=== PATIENT | male | born 1975 | race Caucasian/White ===

== ENCOUNTER 2018-12-11 15:10 | Emergency (ER) | payer OTHER ==
[~2018-12-11] VITALS: Ht 185.4 cm; Wt 81.7 kg
[~2018-12-11 15:10] MED LIST: ACETAMINOPHEN-1 EAC1 PO; APAP500 PO; CLEOCIN HCL150 MG PO; CLEOCIN HCL300 MG PO; CORTISPORIN OTI10 ML OTIC; ERY-TAB500 MG PO; ERYTHROMYCIN500 MG PO; HYDROCODON-ACE1 EAC7 PO; KEFLEX500 MG PO; MEDROLDOSEPACK PO; NOHOMEMEDICATIONS; NORCO 5-325 TA1 EACH PO; ROBAXIN 750 MG750 M1 PO; TRAMADOL 50 MG50 MG PO; TYLENOL EX-STR500 M2 PO; TYLENOL325 MG PO; ULTRAM 50MG TAB50 MG PO; VICODIN 5-5001 EACH PO
[2018-12-11] MEDS ORDERED: MEDROLDOSEPACK PO (16:10)
[2018-12-11] MEDS ORDERED: TRAMADOL 50 MG50 MG PO (16:10)
[2018-12-11] MEDS ORDERED: ROBAXIN 750 MG750 MG PO (16:11)
[2018-12-11 16:17] VITALS: BP 112/72
== END 2018-12-11 16:17 | disposition home or self-care (01) ==
LOC: M.ERS 15:10
DX: G89.29 Other chronic pain (principal); M54.2 Cervicalgia; F17.210 Nicotine dependence, cigarettes, uncomplicated; Z88.0 Allergy status to penicillin; Z88.6 Allergy status to analgesic agent

== ENCOUNTER 2019-04-04 10:38 | Emergency (ER) | payer OTHER ==
[~2019-04-04] VITALS: Ht 185.4 cm; Wt 77.1 kg
[~2019-04-04 10:38] MED LIST changes: +ROBAXIN 750 MG750 MG PO
[2019-04-04 10:50] VITALS: BP 138/91
[2019-04-04] MEDS ORDERED: TRAMADOL 50 MG50 MG PO (11:16)
== END 2019-04-04 11:54 | disposition home or self-care (01) ==
LOC: M.ERS 10:38
DX: M25.562 Pain in left knee (principal); F17.210 Nicotine dependence, cigarettes, uncomplicated; Z85.47 Personal history of malignant neoplasm of testis; Z88.0 Allergy status to penicillin; Z88.6 Allergy status to analgesic agent; Z88.8 Allergy status to other drugs, medicaments and biological substances

== ENCOUNTER 2019-11-18 16:08 | Emergency (ER) | payer OTHER ==
[~2019-11-18] VITALS: Ht 185.4 cm; Wt 77.1 kg
[2019-11-18 16:16] VITALS: BP 145/94
[2019-11-18] MEDS ORDERED: TRAMADOL 50 MG50 MG PO (16:31)
[2019-11-18] MEDS ORDERED: KEFLEX500 M1 PO (16:31)
== END 2019-11-18 16:34 | disposition home or self-care (01) ==
LOC: M.ERS 16:08
DX: K02.9 Dental caries, unspecified (principal); F17.210 Nicotine dependence, cigarettes, uncomplicated; Z88.6 Allergy status to analgesic agent; Z88.0 Allergy status to penicillin; Z87.11 Personal history of peptic ulcer disease; Z85.47 Personal history of malignant neoplasm of testis

== ENCOUNTER 2020-01-05 14:22 | Emergency (ER) | payer OTHER ==
[~2020-01-05] VITALS: Ht 185.4 cm; Wt 77.1 kg
[~2020-01-05 14:22] MED LIST changes: +KEFLEX500 M1 PO
[2020-01-05] MEDS ORDERED: TRAMADOL 50 MG50 MG PO (15:07)
[2020-01-05] MEDS ORDERED: KEFLEX500 M1 PO (15:07)
[2020-01-05 15:14] VITALS: BP 125/70
== END 2020-01-05 15:15 | disposition home or self-care (01) ==
LOC: M.ERS 14:22
DX: K02.9 Dental caries, unspecified (principal); F17.210 Nicotine dependence, cigarettes, uncomplicated; Z85.47 Personal history of malignant neoplasm of testis; Z88.0 Allergy status to penicillin; Z88.8 Allergy status to other drugs, medicaments and biological substances

== ENCOUNTER 2020-01-31 12:13 | Emergency (ER) | payer OTHER ==
[~2020-01-31] VITALS: Ht 185.4 cm; Wt 77.1 kg
[2020-01-31 12:28] VITALS: BP 136/111
[2020-01-31] MEDS ORDERED: APAP W/CODEINE1 TA2 PO (12:37)
[2020-01-31] MEDS ORDERED: CLEOCIN HCL150 MG PO (12:37)
== END 2020-01-31 12:50 | disposition home or self-care (01) ==
LOC: M.ERS 12:13
DX: K04.7 Periapical abscess without sinus (principal); F17.210 Nicotine dependence, cigarettes, uncomplicated; Z88.6 Allergy status to analgesic agent; Z88.0 Allergy status to penicillin; Z85.47 Personal history of malignant neoplasm of testis

== ENCOUNTER 2020-08-31 17:06 | Emergency (ER) | payer OTHER ==
[~2020-08-31] VITALS: Ht 188 cm; Wt 79.4 kg
[~2020-08-31 17:06] MED LIST changes: +APAP W/CODEINE1 TA2 PO
[2020-08-31] MEDS ORDERED: TRAMADOL 50 MG50 MG PO (17:45)
[2020-08-31] MEDS ORDERED: CLINDAMYCIN HC300 MG PO (17:45)
[2020-08-31 18:00] VITALS: BP 136/88
== END 2020-08-31 18:01 | disposition home or self-care (01) ==
LOC: M.ERS 17:06
DX: S02.5XXA Fracture of tooth (traumatic), initial encounter for closed fracture (principal); F17.210 Nicotine dependence, cigarettes, uncomplicated; Z85.47 Personal history of malignant neoplasm of testis; Z88.0 Allergy status to penicillin; Z88.6 Allergy status to analgesic agent; X58.XXXA Exposure to other specified factors, initial encounter; Y93.89 Activity, other specified; Y92.89 Other specified places as the place of occurrence of the external cause; Y99.8 Other external cause status